=== PATIENT | female | born 1995 | race Caucasian/White ===

== ENCOUNTER 2017-03-26 14:08 | Emergency (ER) | payer SELFPAY ==
[~2017-03-26] VITALS: Ht 165.1 cm; Wt 78.0 kg
[~2017-03-26 14:08] MED LIST: Z.0.NO CURRENT MEDS
[2017-03-26 14:13] VITALS: BP 131/62; PULSE 91; RESP 16; TEMP 99.2; O2SAT 99
[2017-03-26] MEDS ORDERED: SODIUM CHLOR 0.9% 1000 ML INJ 1,000 ML IV SCH (14:17)
[2017-03-26] MEDS ORDERED: SODIUM CHLORIDE 0.9% FLUSH 10 ML FLUSH IV FLUSH PRN (14:30)
[2017-03-26] MEDS ORDERED: ONDANSETRON HCL 4 MG/2 ML VIAL IVP ONE (14:30)
--- NOTE | 2017-03-26 14:31 | PD ---
HPI Chief Complaint: GI Complaint Time Seen by Provider: 14:17 Travel History International Travel<30 days: No Contact w/Intl Traveler<30days: No Traveled to known affect area: No History of Present Illness HPI Patient is a 21-year-old female who presents to emergency room with complaints of nausea and vomiting and diarrhea. Reports that she woke up Saturday morning with her symptoms, every morning, she feels nauseous and has with episodes of emesis. Patient reports that symptoms progress last night after she had sexual intercourse, reports that she had pelvic pain after intercourse, patient reports resolution of pelvic pain at this time. Patient denies any vaginal discharge or bleeding, history of STDs. Patient reports no recent travels or trips, no sick contacts. Patient denies history of abdominal surgeries in the past. Patient with no fevers or chills, no other complaints. PFSH Past Medical History ADHD: Yes Cancer: No Diabetes: No Diminished Hearing: No Headaches: No Psychiatric: Yes Migraines: No Seizures: No Thyroid Disease: No Ulcer: No ?: Not LMP: 03/04/17 Past Surgical History Surgical History: No Previous Surgery Appendectomy: No Section: No Cholecystectomy: No Social History Alcohol Use: Yes (WHENEVER AVAILABLE) Tobacco Use: Yes (4-5 CIGS PER DAY) Substance Use: Yes (XANAX 2YRS WHENEVER AVAILABLE , OPIODS) Allergies-Medications (Allergen,Severity, Reaction): Coded Allergies: No Known Allergies (Verified , 03/26/17) Reported Meds & Prescriptions Reported Meds & Active Scripts Active Review of Systems General / Constitutional: No: Fever Eyes: No: Visual changes HENT: No: Headaches Cardiovascular: No: Chest Pain or Discomfort Respiratory: No: Shortness of Breath Gastrointestinal: Positive: Nausea, Vomiting, Abdominal Pain, No: Diarrhea, Constipation Genitourinary: Positive: Pelvic Pain, No: Dysuria, Discharge, Vaginal Bleeding Musculoskeletal: No: Pain Skin: No Rash Neurologic: No: Weakness Psychiatric: No: Depression Endocrine: No: Polydipsia Hematologic/Lymphatic: No: Easy Bruising Physical Exam Narrative GENERAL: NAD SKIN: Focused skin assessment warm/dry. HEAD: Atraumatic. Normocephalic. EYES: No injection or drainage. ENT: No nasal bleeding or discharge. Mucous membranes pink and moist. NECK: Trachea midline. No JVD. CARDIOVASCULAR: Regular rate and rhythm. No murmur appreciated. RESPIRATORY: No accessory muscle use. Clear to auscultation. Breath sounds equal bilaterally. GASTROINTESTINAL: Abdomen soft, non-tender, nondistended. Hepatic and splenic margins not palpable. : pelvic exam performed with RN at bedside, no cmt or adnexal tenderness, no discharge MUSCULOSKELETAL: No obvious deformities. No clubbing. No cyanosis. No edema. NEUROLOGICAL: Awake and alert. No obvious cranial nerve deficits. Motor grossly within normal limits. Normal speech. PSYCHIATRIC: Appropriate mood and affect; insight and judgment normal. Data Data Last Documented VS Vital Signs Date Time Temp Pulse Resp B/P (MAP) Pulse Ox O2 Delivery O2 Flow Rate FiO2 03/26/17 14:13 99.2 91 16 131/62 (85) 99 Orders Orders Complete Blood Count With Diff (03/26/17 14:17) Comprehensive Metabolic Panel (03/26/17 14:17) Lipase (03/26/17 14:17) Urinalysis - C+S If Indicated (03/26/17 14:17) Iv Access Insert/Monitor (03/26/17 14:17) Ecg Monitoring (03/26/17 14:17) NPO (03/26/17 14:17) Ondansetron Inj (Zofran Inj) (03/26/17 14:30) Sodium Chlor 0.9% 1000 Ml Inj (Ns 1000 M (03/26/17 14:17) Sodium Chloride 0.9% Flush (Ns Flush) (03/26/17 14:30) Ed Urine Pregnancytest Poc (03/26/17 14:17) Gc And Chlamydia Pcr (03/26/17 14:25) Wet Prep Profile (03/26/17 14:25) Labs Laboratory Tests Test 03/26/17 14:35 03/26/17 15:00 Clue Cells (Wet Prep) NONE SEEN Vaginal Trichomonas (Wet Prep) NONE SEEN Vaginal Yeast (Wet Prep) NONE SEEN White Blood Count 10.0 TH/MM3 Red Blood Count 5.34 MIL/MM3 Hemoglobin 14.7 GM/DL Hematocrit 45.4 % Mean Corpuscular Volume 85.0 FL Mean Corpuscular Hemoglobin 27.5 PG Mean Corpuscular Hemoglobin Concent 32.3 % Red Cell Distribution Width 12.6 % Platelet Count 237 TH/MM3 Mean Platelet Volume 9.8 FL Neutrophils (%) (Auto) 80.6 % Lymphocytes (%) (Auto) 11.8 % Monocytes (%) (Auto) 4.3 % Eosinophils (%) (Auto) 0.5 % Basophils (%) (Auto) 2.8 % Neutrophils # (Auto) 8.0 TH/MM3 Lymphocytes # (Auto) 1.2 TH/MM3 Monocytes # (Auto) 0.4 TH/MM3 Eosinophils # (Auto) 0.1 TH/MM3 Basophils # (Auto) 0.3 TH/MM3 CBC Comment DIFF FINAL Differential Comment Blood Urea Nitrogen 9 MG/DL Creatinine 0.73 MG/DL Random Glucose 95 MG/DL Total Protein 8.0 GM/DL Albumin 4.3 GM/DL Calcium Level 9.1 MG/DL Alkaline Phosphatase 51 U/L Aspartate Amino Transf (AST/SGOT) 18 U/L Alanine Aminotransferase (ALT/SGPT) 18 U/L Total Bilirubin 0.5 MG/DL Sodium Level 139 MEQ/L Potassium Level 3.8 MEQ/L Chloride Level 105 MEQ/L Carbon Dioxide Level 24.2 MEQ/L Anion Gap 10 MEQ/L Estimat Glomerular Filtration Rate 99 ML/MIN Lipase 198 U/L [facility] Medical Decision Making Medical Screen Exam Complete: Yes Emergency Medical Condition: Yes Medical Record Reviewed: Yes Interpretation(s) Vital Signs Date Time Temp Pulse Resp B/P (MAP) Pulse Ox O2 Delivery O2 Flow Rate FiO2 03/26/17 14:13 99.2 91 16 131/62 (85) 99 Differential Diagnosis Differential includes gastritis, gastroenteritis, PID, appendicitis, ovarian cyst/torsion Narrative Course Patient is a 21-year-old female presents to emergency room with complaints of nausea and vomiting and diarrhea for the past few days. Patient reports that she had abdominal pain yesterday after intercourse, reports complete resolution of pain at this time. Vital Signs Date Time Temp Pulse Resp B/P (MAP) Pulse Ox O2 Delivery O2 Flow Rate FiO2 03/26/17 14:13 99.2 91 16 131/62 (85) 99 VSS, abdomen is soft, nt/nd, no peritoneal signs. IV line was established, CBC CMP, UA ordered. Plan to give IVF and antiemetics. Will perform pelvic exam given her pelvic pain last night. Plan to monitor patient Pelvic exam: no cmt or adnexal tenderness, no discharge Procedures Procedure Narrative Left side EJ IV access Patient was tredelenberg position, after area was cleaned, 20 gauge IV was placed to left sided external jugular vein without any difficultly. Patient tolerated procedure well Diagnosis Primary Impression: Nausea, vomiting and diarrhea Patient Instructions: General Instructions Additional Instructions: Please follow up with all cultures from today Drink plenty of fluids Please follow up with your primary care doctor in 2-3 days Return to ER as needed or if symptoms return Med/Other Pt SpecificInfo: Prescription(s) given Scripts Ondansetron (Zofran) 4 Mg Tab 4 MG PO Q6HR Y for NAUSEA OR VOMITING, #20 TAB 0 Refills Prov: Shala Gu DO 03/26/17 Disposition: 01 DISCHARGE HOME Condition: Stable Shala Gu DO Mar 26, 2017 14:31
[2017-03-26 15:12] LABS: BASOPHIL # 0.3 TH/MM3 (0-0.2); BASOPHIL % 2.8 % (0.0-2.0); EOSINOPHIL # 0.1 TH/MM3 (0-0.4); EOSINOPHIL % 0.5 % (0.0-4.0); HEMATOCRIT 45.4 % (35.0-46.0); HEMOGLOBIN 14.7 GM/DL (11.6-15.3); LYMPH % 11.8 % (9.0-44.0); LYMPHOCYTE # 1.2 TH/MM3 (1.0-4.8); MEAN CORPUSCULAR HEMOGLOBIN 27.5 PG (27.0-34.0); MEAN CORPUSCULAR HGB CONC 32.3 % (32.0-36.0); MEAN PLATELET VOLUME 9.8 FL (7.0-11.0); MONO % 4.3 % (0.0-8.0); MONOCYTE # 0.4 TH/MM3 (0-0.9); NEUT % 80.6 % (16.0-70.0); PLATELET COUNT 237 TH/MM3 (150-450); RED BLOOD COUNT 5.34 MIL/MM3 (4.00-5.30); RED CELL DISTRIBUTION WIDTH 12.6 % (11.6-17.2)
[2017-03-26 15:20] LABS: CHLORIDE 105 MEQ/L (98-107); SODIUM (NA) 139 MEQ/L (136-145)
[2017-03-26 15:24] LABS: ALBUMIN 4.3 GM/DL (3.4-5.0); BICARBONATE 24.2 MEQ/L (21.0-32.0); BLOOD UREA NITROGEN 9 MG/DL (7-18); CALCIUM 9.1 MG/DL (8.5-10.1); GLUCOSE,RANDOM 95 MG/DL (74-106); LIPASE 198 U/L (73-393)
[2017-03-26 15:27] LABS: ALT (GPT) 18 U/L (10-53); AST (GOT) 18 U/L (15-37); CREATININE 0.73 MG/DL (0.50-1.00); GLOMERULAR FILTRATION RATE 99 ML/MIN (>89)
[2017-03-26 15:29] LABS: TOTAL BILIRUBIN ADULT 0.5 MG/DL (0.2-1.0)
[2017-03-26 15:30] LABS: ALKALINE PHOSPHATASE 51 U/L (45-117)
[2017-03-26] MEDS ORDERED: ZOFR4TAB PO (15:47)
--- NOTE | 2017-03-26 15:53 | PD ---
Physical Exam Date Seen by Provider: Mar 26, 2017 Time Seen by Provider: 15:51 Narrative The patient is a 21-year-old female was initially evaluated by the previous physician, Dr. Gu. Please refer to the initial history, physical, diagnostic evaluation, and treatment modality plan. The patient was signed out at 4 PM with UA and test pending. Data Data Last Documented VS Vital Signs Date Time Temp Pulse Resp B/P (MAP) Pulse Ox O2 Delivery O2 Flow Rate FiO2 03/26/17 14:13 99.2 91 16 131/62 (85) 99 Orders Orders Complete Blood Count With Diff (03/26/17 14:17) Comprehensive Metabolic Panel (03/26/17 14:17) Lipase (03/26/17 14:17) Urinalysis - C+S If Indicated (03/26/17 14:17) Iv Access Insert/Monitor (03/26/17 14:17) Ecg Monitoring (03/26/17 14:17) NPO (03/26/17 14:17) Ondansetron Inj (Zofran Inj) (03/26/17 14:30) Sodium Chlor 0.9% 1000 Ml Inj (Ns 1000 M (03/26/17 14:17) Sodium Chloride 0.9% Flush (Ns Flush) (03/26/17 14:30) Ed Urine Pregnancytest Poc (03/26/17 14:17) Gc And Chlamydia Pcr (03/26/17 14:25) Wet Prep Profile (03/26/17 14:25) Labs Laboratory Tests Test 03/26/17 14:35 03/26/17 15:00 03/26/17 15:45 Clue Cells (Wet Prep) NONE SEEN Vaginal Trichomonas (Wet Prep) NONE SEEN Vaginal Yeast (Wet Prep) NONE SEEN White Blood Count 10.0 TH/MM3 Red Blood Count 5.34 MIL/MM3 Hemoglobin 14.7 GM/DL Hematocrit 45.4 % Mean Corpuscular Volume 85.0 FL Mean Corpuscular Hemoglobin 27.5 PG Mean Corpuscular Hemoglobin Concent 32.3 % Red Cell Distribution Width 12.6 % Platelet Count 237 TH/MM3 Mean Platelet Volume 9.8 FL Neutrophils (%) (Auto) 80.6 % Lymphocytes (%) (Auto) 11.8 % Monocytes (%) (Auto) 4.3 % Eosinophils (%) (Auto) 0.5 % Basophils (%) (Auto) 2.8 % Neutrophils # (Auto) 8.0 TH/MM3 Lymphocytes # (Auto) 1.2 TH/MM3 Monocytes # (Auto) 0.4 TH/MM3 Eosinophils # (Auto) 0.1 TH/MM3 Basophils # (Auto) 0.3 TH/MM3 CBC Comment DIFF FINAL Differential Comment Blood Urea Nitrogen 9 MG/DL Creatinine 0.73 MG/DL Random Glucose 95 MG/DL Total Protein 8.0 GM/DL Albumin 4.3 GM/DL Calcium Level 9.1 MG/DL Alkaline Phosphatase 51 U/L Aspartate Amino Transf (AST/SGOT) 18 U/L Alanine Aminotransferase (ALT/SGPT) 18 U/L Total Bilirubin 0.5 MG/DL Sodium Level 139 MEQ/L Potassium Level 3.8 MEQ/L Chloride Level 105 MEQ/L Carbon Dioxide Level 24.2 MEQ/L Anion Gap 10 MEQ/L Estimat Glomerular Filtration Rate 99 ML/MIN Lipase 198 U/L Urine Color YELLOW Urine Turbidity CLEAR Urine pH 6.0 Urine Specific [place] 1.024 Urine Protein NEG mg/dL Urine Glucose (UA) NEG mg/dL Urine Ketones 15 mg/dL Urine Occult Blood TRACE Urine Nitrite NEG Urine Bilirubin NEG Urine Leukocyte Esterase TRACE Urine RBC 0-3 /hpf Urine WBC 0-2 /hpf Urine Squamous Epithelial Cells 0-5 /hpf Urine Amorphous Sediment FEW Urine Mucus MOD /lpf Microscopic Urinalysis Comment CULT NOT INDICATED [facility] Medical Record Reviewed: Yes Supervised Visit with CONCHITA: No Interpretation(s) Laboratory Tests Test 03/26/17 14:35 03/26/17 15:00 03/26/17 15:45 Clue Cells (Wet Prep) NONE SEEN Vaginal Trichomonas (Wet Prep) NONE SEEN Vaginal Yeast (Wet Prep) NONE SEEN White Blood Count 10.0 TH/MM3 Red Blood Count 5.34 MIL/MM3 Hemoglobin 14.7 GM/DL Hematocrit 45.4 % Mean Corpuscular Volume 85.0 FL Mean Corpuscular Hemoglobin 27.5 PG Mean Corpuscular Hemoglobin Concent 32.3 % Red Cell Distribution Width 12.6 % Platelet Count 237 TH/MM3 Mean Platelet Volume 9.8 FL Neutrophils (%) (Auto) 80.6 % Lymphocytes (%) (Auto) 11.8 % Monocytes (%) (Auto) 4.3 % Eosinophils (%) (Auto) 0.5 % Basophils (%) (Auto) 2.8 % Neutrophils # (Auto) 8.0 TH/MM3 Lymphocytes # (Auto) 1.2 TH/MM3 Monocytes # (Auto) 0.4 TH/MM3 Eosinophils # (Auto) 0.1 TH/MM3 Basophils # (Auto) 0.3 TH/MM3 CBC Comment DIFF FINAL Differential Comment Blood Urea Nitrogen 9 MG/DL Creatinine 0.73 MG/DL Random Glucose 95 MG/DL Total Protein 8.0 GM/DL Albumin 4.3 GM/DL Calcium Level 9.1 MG/DL Alkaline Phosphatase 51 U/L Aspartate Amino Transf (AST/SGOT) 18 U/L Alanine Aminotransferase (ALT/SGPT) 18 U/L Total Bilirubin 0.5 MG/DL Sodium Level 139 MEQ/L Potassium Level 3.8 MEQ/L Chloride Level 105 MEQ/L Carbon Dioxide Level 24.2 MEQ/L Anion Gap 10 MEQ/L Estimat Glomerular Filtration Rate 99 ML/MIN Lipase 198 U/L Urine Color YELLOW Urine Turbidity CLEAR Urine pH 6.0 Urine Specific [place] 1.024 Urine Protein NEG mg/dL Urine Glucose (UA) NEG mg/dL Urine Ketones 15 mg/dL Urine Occult Blood TRACE Urine Nitrite NEG Urine Bilirubin NEG Urine Leukocyte Esterase TRACE Urine RBC 0-3 /hpf Urine WBC 0-2 /hpf Urine Squamous Epithelial Cells 0-5 /hpf Urine Amorphous Sediment FEW Urine Mucus MOD /lpf Microscopic Urinalysis Comment CULT NOT INDICATED Differential Diagnosis Differential diagnosis includes gastritis, enteritis, colitis, gastroenteritis, viral syndrome, pyelonephritis, , pancreatitis. Narrative Course The patient is a 21-year-old female who was initially evaluated by the previous physician, Dr. Gu. Please refer to the initial history, physical, diagnostic evaluation, and treatment modality plan. The patient was signed out of 4 PM with UA pending. The patient's test was negative. CBC is unremarkable. CMP is unremarkable. Wet prep is normal. UA is unremarkable. The patient's nausea, vomiting, diarrhea most likely are viral in origin. The patient is stable for outpatient follow-up. Diagnosis Primary Impression: Nausea, vomiting and diarrhea Referrals: Primary Care Physician call for appointment [facility] call for appointment Patient Instructions: General Instructions, Acute Nausea and Vomiting (ED), Acute Diarrhea (ED), Nutrition Tips for Relief of Diarrhea (ED) Departure Forms: Tests/Procedures Additional Instruction: Please follow up with all cultures from today Drink plenty of fluids Please follow up with your primary care doctor in 2-3 days Return to ER as needed or if symptoms return Scripts Ondansetron (Zofran) 4 Mg Tab 4 MG PO Q6HR Y for NAUSEA OR VOMITING, #20 TAB 0 Refills Prov: RiccardoShalarocky Dominguez DO 03/26/17 Disposition: 01 DISCHARGE HOME Condition: Stable Curt Crandall MD Mar 26, 2017 15:53
[2017-03-26 16:15] VITALS: BP 128/74; PULSE 88; RESP 18; O2SAT 98
[2017-03-26 16:17] LABS: BILIRUBIN, URINE NEG (NEG); GLUCOSE,URINE NEG (NEG); KETONE, URINE 15 mg/dL (NEG); NITRITE,URINE NEG (NEG); URINE LEUKOCYTE ESTERASE TRACE (NEG)
[2017-03-26 16:20] LABS: BLOOD, URINE TRACE (NEG)
[2017-03-26 16:32] LABS: URINE COLOR YELLOW (YELLW/STRAW)
[2017-03-26 16:33] LABS: MUCUS URINE MOD /lpf (OCC); RBC, URINE 0-3 /hpf (0-3); SQUAMOUS EPITHELIAL CELL URINE 0-5 /hpf (0-5); WBC, URINE 0-2 /hpf (0-5)
[2017-03-26 16:34] LABS: AMORPHOUS SEDIMENT, URINE FEW
[2017-03-26 17:30] VITALS: BP 121/77
== END 2017-03-26 17:32 | disposition home or self-care (01) ==
LOC: PHED 14:08
DX: R11.2 Nausea with vomiting, unspecified (principal); R19.7 Diarrhea, unspecified; F90.9 Attention-deficit hyperactivity disorder, unspecified type; F17.210 Nicotine dependence, cigarettes, uncomplicated
CPT/HCPCS: 80053; 81001; 83690; 84703; 85025; 87210; 87491; 87591; 96361; 96374; 99284; J2405; J7030

== ENCOUNTER 2017-06-28 19:20 | Emergency (ER) | payer BC ==
[~2017-06-28] VITALS: Ht 165.1 cm; Wt 73.7 kg
[~2017-06-28 19:20] MED LIST changes: -Z.0.NO CURRENT MEDS; +ZOFR4TAB PO
[2017-06-28 19:26] VITALS: BP 151/74; PULSE 96; RESP 18; TEMP 99.2; O2SAT 99
--- NOTE | 2017-06-28 20:09 | PD ---
HPI Chief Complaint: Complaint Time Seen by Provider: 20:03 Travel History International Travel<30 days: No Contact w/Intl Traveler<30days: No Traveled to known affect area: No History of Present Illness HPI 22-year-old female presents to the emergency department by private transportation for complaint of one month of urinary frequency urgency and post micturition pain. Patient states more recently she has started to develop lower back pain and left flank pain. Patient does not report any fever or chills. Patient's had nausea without vomiting. Patient's last menses was 05/29 and normal for her. Patient's had urinary tract infection in the past. Patient does not report any vaginal discharge or abnormal vaginal bleeding. Patient occasionally has some intermittent chest wall pain but is not having that at this time. Patient also complains of anxiety. Prior history of Xanax abuse. Patient rates her discomfort as 4/10 in intensity. Patient reports her UTI in past has responded well to Bactrim. PFS Past Medical History Narrative Medical ADHD arthritis anxiety she 1 P1, tympanostomy; tobacco use alcohol use substance use; nursing notes reviewed ADHD: Yes Arthritis: Yes Weight (Kg): 3 Cancer: No Diabetes: No Diminished Hearing: No Headaches: No Musculoskeletal: Yes (Right elbow fracture) Psychiatric: Yes Migraines: No Seizures: No Thyroid Disease: No Ulcer: No Tetanus Vaccination: Unknown Influenza Vaccination: No ?: Not LMP: 06/02/17 : 1 Para: 1 Past Surgical History Appendectomy: No Section: No Cholecystectomy: No Tympanostomy Tube: Yes Social History Alcohol Use: Yes (WHENEVER AVAILABLE) Tobacco Use: Yes (1/2PPD) Substance Use: Yes (XANAX 2YRS WHENEVER AVAILABLE , Heroin) Allergies-Medications (Allergen,Severity, Reaction): Coded Allergies: No Known Allergies (Verified , 03/26/17) Reported Meds & Prescriptions Reported Meds & Active Scripts Active Zofran (Ondansetron HCl) 4 Mg Tab 4 Mg PO Q6HR PRN Review of Systems Except as stated in HPI: all other systems reviewed are Neg General / Constitutional: No: Fever, Chills HENT: No: Sore Throat, Congestion Cardiovascular: Positive: Chest Pain or Discomfort (occasionally -- "chest wall hurts when I presses on it") Respiratory: No: Shortness of Breath, Pleuritic Pain Gastrointestinal: Positive: Nausea, No: Vomiting, Diarrhea, Abdominal Pain Genitourinary: Positive: Urgency, Frequency, Dysuria, Flank Pain, No: Pelvic Pain, Discharge, Vaginal Bleeding Musculoskeletal: No: Myalgias, Arthralgias, Edema, Pain Skin: No Rash Neurologic: No: Weakness, Dizziness, Syncope, Focal Abnormalities, Coordination Problem Psychiatric: Positive: Anxiety Hematologic/Lymphatic: No: Lymph Node Enlargement Physical Exam Narrative GENERAL: Well-developed well-nourished female in no acute distress no respiratory distress SKIN: Warm and dry. HEAD: Normocephalic. EYES: No scleral icterus. No injection or drainage. NECK: Supple, trachea midline. No JVD or lymphadenopathy. CARDIOVASCULAR: Regular rate and rhythm without murmurs, gallops, or rubs. RESPIRATORY: Breath sounds equal bilaterally. No accessory muscle use. GASTROINTESTINAL: Abdomen soft, non-tender, nondistended. MUSCULOSKELETAL: No cyanosis, or edema. BACK: Nontender without obvious deformity. Mild left sided CVA tenderness. Data Data Last Documented VS Vital Signs Date Time Temp Pulse Resp B/P (MAP) Pulse Ox O2 Delivery O2 Flow Rate FiO2 06/28/17 19:48 16 06/28/17 19:26 99.2 96 151/74 (99) 99 Orders Orders Ed Urine Pregnancytest Poc (06/28/17 20:03) Urinalysis - C+S If Indicated (06/28/17 20:03) Drug Screen, Random Urine (06/28/17 20:09) Urine Culture (06/28/17 20:05) Sulfamet-Trimeth Ds 800-160 Mg (Bactrim (06/28/17 20:45) Ibuprofen (Motrin) (06/28/17 20:45) Phenazopyridine (Pyridium) (06/28/17 20:45) Labs Laboratory Tests Test 06/28/17 20:05 Urine Color YELLOW Urine Turbidity CLEAR Urine pH 6.0 Urine Specific [place] 1.015 Urine Protein NEG mg/dL Urine Glucose (UA) NEG mg/dL Urine Ketones NEG mg/dL Urine Occult Blood SMALL Urine Nitrite NEG Urine Bilirubin NEG Urine Leukocyte Esterase SMALL Urine RBC 4-9 /hpf Urine WBC 15-19 /hpf Urine WBC Clumps MOD Urine Squamous Epithelial Cells 6-8 /hpf Microscopic Urinalysis Comment CULTURE INDICATED Urine Opiates Screen POS Urine Barbiturates Screen NEG Urine Amphetamines Screen NEG Urine Benzodiazepines Screen NEG Urine Cocaine Screen NEG Urine Cannabinoids Screen NEG MDM Medical Decision Making Medical Screen Exam Complete: Yes Emergency Medical Condition: Yes Medical Record Reviewed: Yes Interpretation(s) UA: positive for WBC's, clumped wbc/s, leuk esterase; cx indicated POC hcg:negative Urine drug screen: positive for opiates Differential Diagnosis Dysuria, UTI, pyelonephritis, ectopic , renal colic, musculoskeletal pain Narrative Course Urine specimen collected and sent for resulting [id number] hCG is negative Urinalysis is positive for leukocytes Estrace white blood cells clumped white blood cells culture is indicated patient is given first dose of oral antibiotic in the emergency department along with asthma. 100 mg and one-time dose of ibuprofen 800 mg; patient will be given prescription for Bactrim and Pyridium patient states she has remote past with urinary tract infection management on Bactrim she is encouraged to follow-up with her primary care provider return to the emergency department as needed patient is aware of lab results and recommendation for outpatient management. Diagnosis Primary Impression: UTI (urinary tract infection) Referrals: Primary Care Physician call for appointment Patient Instructions: General Instructions Additional Instructions: Increase fluid hydration Complete course of antibiotic Follow-up with your primary care provider Return to the emergency department for any concerns or change in condition Monitor temperature for fever may take acetaminophen/Tylenol every 4-6 hours as needed for fever 100.4F or greater May also use ibuprofen/Advil/Motrin for fever 100.4F or greater or for pain associated with inflammation per package directions Med/Other Pt SpecificInfo: Prescription(s) given Scripts Phenazopyridine (Pyridium) 100 Mg Tab 100 MG PO Q8H Y for DYSURIA, #6 TAB 0 Refills Prov: Kell Harvey MD 06/28/17 Sulfamethoxazole-Trimethoprim (Bactrim DS) 800-160 Mg Tab 1 TAB PO BID for Infection, #14 TAB 0 Refills Prov: Kell Harvey MD 06/28/17 Disposition: 01 DISCHARGE HOME Condition: Stable Kell Harvey MD Jun 28, 2017 20:09
[2017-06-28 20:22] LABS: BILIRUBIN, URINE NEG (NEG); GLUCOSE,URINE NEG (NEG); KETONE, URINE NEG (NEG); NITRITE,URINE NEG (NEG); URINE LEUKOCYTE ESTERASE SMALL (NEG)
[2017-06-28 20:27] LABS: BLOOD, URINE SMALL (NEG); URINE COLOR YELLOW (YELLW/STRAW); WBC, URINE 15-19 /hpf (0-5); WHITE BLOOD CELL CLUMPS MOD
[2017-06-28] MEDS ORDERED: IBUPROFEN 800 MG TAB PO ONE (20:45)
[2017-06-28] MEDS ORDERED: PHENAZOPYRIDINE HCL 100 MG TAB PO ONE (20:45)
[2017-06-28] MEDS ORDERED: SULFAMETHOXAZOLE-TRIMETHOPRIM DS 800-160 MG TAB PO ONE (20:45)
[2017-06-28] MEDS ORDERED: BACT800T5 PO (20:48)
[2017-06-28] MEDS ORDERED: PHEN0.4T PO (20:48)
[2017-06-28 20:54] VITALS: BP 126/69; PULSE 74; RESP 16; O2SAT 100
[2017-06-28 21:03] VITALS: BP 126/69
== END 2017-06-28 21:05 | disposition home or self-care (01) ==
LOC: PHED 19:20
DX: N39.0 Urinary tract infection, site not specified (principal); B96.20 Unspecified Escherichia coli [E. coli] as the cause of diseases classified elsewhere; M54.5 Low back pain; R07.89 Other chest pain; F41.9 Anxiety disorder, unspecified; Z72.0 Tobacco use; F11.90 Opioid use, unspecified, uncomplicated; F19.90 Other psychoactive substance use, unspecified, uncomplicated; Z72.89 Other problems related to lifestyle
CPT/HCPCS: 80307; 81001; 84703; 87077; 87086; 87186; 99284